=== PATIENT | male | born 1945 | race Caucasian/White ===

== ENCOUNTER 2019-10-29 11:48 | Emergency (ER) | payer MEDICARE ==
[~2019-10-29] VITALS: Ht 177.8 cm; Wt 73.4 kg
[2019-10-29] MEDS ORDERED: TETANUS & DIPHTHERIA TOX,ADULT 0.5 ML (TENIVAC) IM ONE (12:15)
--- NOTE | 2019-10-29 12:23 | NUR ---
To CT per cart.
[2019-10-29 12:25] LABS: BASOPHILS # (AUTO) 0.1 10^3/uL (0.0-0.1); BASOPHILS % (AUTO) 0 % (0-10); EOSINOPHILS # (AUTO) 0.1 10^3/uL (0.0-0.3); EOSINOPHILS % (AUTO) 1 % (0-10); HEMATOCRIT 37 % (40-54); HEMOGLOBIN 12.8 G/DL (13.3-17.7); LYMPHOCYTES # (AUTO) 1.1 X 10^3 (1.0-4.0); LYMPHOCYTES % (AUTO) 8 % (12-44); MEAN CORPUSCULAR HEMOGLOBIN 31 PG (25-34); MEAN CORPUSCULAR HGB CONC 35 G/DL (32-36); MEAN CORPUSCULAR VOLUME 91 FL (80-99); MEAN PLATELET VOLUME 9.5 FL (7.4-10.4); MONOCYTES # (AUTO) 1.3 X 10^3 (0.0-1.0); MONOCYTES % (AUTO) 9 % (0-12); NEUTROPHILS # (AUTO) 12.1 X 10^3 (1.8-7.8); NEUTROPHILS % (AUTO) 82 % (42-75); PLATELET COUNT 333 10^3/uL (130-400); RED CELL DISTRIBUTION WIDTH 12.8 % (10.0-14.5); WHITE BLOOD COUNT 14.7 10^3/uL (4.3-11.0)
[2019-10-29 12:37] LABS: LYMPHOCYTES % (MANUAL) 6 %; MONOCYTES % (MANUAL) 8 %; NEUTROPHILS % (MANUAL) 86 %; RBC MORPH NORMAL
[2019-10-29 12:44] LABS: CREATININE SERUM 1.2 MG/DL (0.60-1.30); POTASSIUM 3.5 MMOL/L (3.6-5.0)
--- NOTE | 2019-10-29 12:48 | Diagnostic Imaging Report ---
PROCEDURE: CT head without contrast. TECHNIQUE: Multiple contiguous axial images were obtained through the brain without the use of intravenous contrast. Auto Exposure Controls were utilized during the CT exam to meet ALARA standards for radiation dose reduction. INDICATION: Fall striking the head. COMPARISON: I have no relevant comparison. FINDINGS: There is soft tissue swelling, presumed right posterior parietal scalp hematoma. The underlying calvarium revealed no traumatic deformity. The sinuses are clear. There is no pneumocephalus. There is no intracerebral hemorrhage. There are no abnormal extra-axial fluid collections. The ventricular system is nondilated and nondisplaced. Cerebrocortical volume is unremarkable for age. There is no hydrocephalus. No mass or mass effect. No findings of focal nor generalized edema. No evidence for elevation of the pressures. IMPRESSION: Right-sided scalp swelling. No fracture, deformity, or evidence for intracranial hemorrhage. Dictated by: Dictated on workstation # [id number]
[2019-10-29] MEDS ORDERED: NS IV 1000 ML 1,000 ML IV SCH (13:00)
--- NOTE | 2019-10-29 13:07 | ED General ---
General Chief Complaint: Trauma-Non Activation Stated Complaint: FALL Nursing Triage Note: Head laceration, skin tear, lower back pain. Nursing Sepsis Screen: No Definite Risk Exam Limitations: No Limitations History of Present Illness Date Seen by Provider: Oct 29, 2019 Time Seen by Provider: 12:20 Initial Comments Patient is a 73-year-old male who presents with dizziness from standing and falling while outdoors on the second step of stepladder resulting on laceration to the apical scalp, right forearm abrasion and lower back pain. Patient states he felt lightheaded and had brief loss of consciousness prior to fall and does not recall the fall. Patient denies headache, neck pain and is not on blood thinners. Denies focal neurologic deficits, no palpitations, chest pain or shortness of breath. No history of seizure disorder or arrhythmia. Patient states he frequently has dizzy episodes while bending over or working in the garden. Date of last tetanus is unknown. Severity: Mild Allergies and Home Medications Allergies Coded Allergies: No Known Drug Allergies (Unverified , 10/29/19) Patient Home Medication List Home Medication List Reviewed: Yes Review of Systems Review of Systems Constitutional: see HPI EENTM: see HPI Respiratory: see HPI Cardiovascular: see HPI Gastrointestinal: see HPI Musculoskeletal: see HPI Skin: see HPI Psychiatric/Neurological: See HPI Hematologic/Lymphatic: See HPI Immunological/Allergic: see HPI All Other Systems Reviewed Negative Unless Noted: Yes Past Wdtiiia-Irllui-Icqjdl Hx Past Med/Social Hx: Reviewed Nursing Past Med/Soc Hx Patient Social History Alcohol Use: Denies Use Recreational Drug Use: No Smoking Status: Never a Smoker 2nd Hand Smoke Exposure: No Recent Foreign Travel: No Contact w/Someone Who Travel: No Recent Infectious Disease Expo: No Recent Hopitalizations: No Physical Abuse: No Sexual Abuse: No Mistreated: No Fear: No Seasonal Allergies Seasonal Allergies: No Past Medical History Surgeries: Yes Thyroidectomy Respiratory: No Cardiac: Yes High Cholesterol, Hypertension Neurological: No Genitourinary: No Gastrointestinal: No Musculoskeletal: No Endocrine: No HEENT: No Cancer: No Psychosocial: No Integumentary: No Physical Exam Vital Signs Vital Signs - First Documented 10/29/19 11:51 Temp 35.9 Pulse 70 Resp 20 B/P (MAP) 151/71 (97) Pulse Ox 100 O2 Delivery Room Air Capillary Refill : Less Than 3 Seconds Height, Weight, BMI Height: '" Weight: lbs. oz. kg; 23.00 BMI Method: General Appearance: WD/WN Eyes: Bilateral Eye Normal Inspection, Bilateral Eye PERRL, Bilateral Eye EOMI HEENT: PERRL/EOMI, Normal ENT Inspection, Pharynx Normal, Moist Mucous Membranes, Other (apical scalp laceration, no foreign body. bleeding is controlled. 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 Norm as Tested Progress/Results/Core Measures Suspected Sepsis Recent Fever Within 48 Hours: No Infection Criteria Present: None New/Unexplained Altered Menta: No Sepsis Screen: No Definite Risk SIRS Temperature: Pulse: 70 Respiratory Rate: 20 Laboratory Tests 10/29/19 12:15: White Blood Count 14.7H Blood Pressure 151 /71 Mean: 97 Laboratory Tests 10/29/19 12:15: Creatinine 1.20, Platelet Count 333 Results/Orders Lab Results Laboratory Tests Test 10/29/19 12:15 Range/Units White Blood Count 14.7 H 4.3-11.0 10^3/uL Red Blood Count 4.07 L 4.35-5.85 10^6/uL Hemoglobin 12.8 L 13.3-17.7 G/DL Hematocrit 37 L 40-54 % Mean Corpuscular Volume 91 80-99 FL Mean Corpuscular Hemoglobin 31 25-34 PG Mean Corpuscular Hemoglobin Concent 35 32-36 G/DL Red Cell Distribution Width 12.8 10.0-14.5 % Platelet Count 333 130-400 10^3/uL Mean Platelet Volume 9.5 7.4-10.4 FL Neutrophils (%) (Auto) 82 H 42-75 % Lymphocytes (%) (Auto) 8 L 12-44 % Monocytes (%) (Auto) 9 0-12 % Eosinophils (%) (Auto) 1 0-10 % Basophils (%) (Auto) 0 0-10 % Neutrophils # (Auto) 12.1 H 1.8-7.8 X 10^3 Lymphocytes # (Auto) 1.1 1.0-4.0 X 10^3 Monocytes # (Auto) 1.3 H 0.0-1.0 X 10^3 Eosinophils # (Auto) 0.1 0.0-0.3 10^3/uL Basophils # (Auto) 0.1 0.0-0.1 10^3/uL Neutrophils % (Manual) 86 % Lymphocytes % (Manual) 6 % Monocytes % (Manual) 8 % Blood Morphology Comment NORMAL Sodium Level 140 135-145 MMOL/L Potassium Level 3.5 L 3.6-5.0 MMOL/L Chloride Level 99 98-107 MMOL/L Carbon Dioxide Level 28 21-32 MMOL/L Anion Gap 13 5-14 MMOL/L Blood Urea Nitrogen 27 H 7-18 MG/DL Creatinine 1.20 0.60-1.30 MG/DL Estimat Glomerular Filtration Rate 59 BUN/Creatinine Ratio 23 Glucose Level 125 H 70-105 MG/DL Calcium Level 9.0 8.5-10.1 MG/DL My Orders Orders - BEATRIZ GRAYSON DO Cbc With Automated Diff (10/29/19 12:10) Basic Metabolic Panel (10/29/19 12:10) Ekg Tracing (10/29/19 12:10) Lumbar Spine 2 Or 3 View (10/29/19 12:10) Sacrum & Coccyx (10/29/19 12:10) Tetanus/Diphtheria Inj (Adult) (Tenivac (10/29/19 12:15) Ct Head Wo (10/29/19 12:10) Manual Differential (10/29/19 12:15) Ns Iv 1000 Ml (Sodium Chloride 0.9%) (10/29/19 13:00) Ct Lumbar Spine Wo (10/29/19 13:27) Ct Pelvis Wo (10/29/19 13:27) Medications Given in ED Current Medications Medications Dose Ordered Sig/David Route Start Time Stop Time Status Last Admin Dose Admin Tetanus/ Diphtheria Toxoids 0.5 ml ONCE ONCE IM 10/29/19 12:15 10/29/19 12:16 DC 10/29/19 13:18 0.5 ML Vital Signs/I&O 10/29/19 11:51 Temp 35.9 Pulse 70 Resp 20 B/P (MAP) 151/71 (97) Pulse Ox 100 O2 Delivery Room Air Capillary Refill : Less Than 3 Seconds Blood Pressure Mean: 97 Departure Communication (Admissions) CT head/CT lumbar spines/CT pelvis: Reviewed. Nondisplaced stable L3 compression fracture with 10% vertebral height loss per radiology report patient has no neurologic injuries. Suspect orthostatic hypotension secondary to environmental conditions position change. Patient stable on the monitor without arrhythmia. Case reviewed with Dr.Bartosz Tank Leyva MD on-call for neurosurgery at [facility] who will see patient in outpatient follow-up in 4 weeks. Impression Primary Impression: Syncope Additional Impressions: Scalp laceration Compression fracture of L3 vertebra Disposition: HOME, SELF-CARE Condition: Stable Departure-Patient Inst. Patient Instructions: Syncope (Fainting) (DC), Vertebral Compression Fracture (DC), Wound Care Add. Discharge Instructions: Please go home and rest. Avoid lifting, bending and strenuous physical activity. Take newly prescribed medications as directed and follow-up with [facility] neurosurgeon in 4 weeks and PCP to coordinate outpatient tests and for further pain management. You may benefit from a TLSO brace as needed for additional pain relief. Contact Dr. Yvette Leyva MD, neurosurgeon at [facility] to schedule follow up appointment. Your PCP should order x-rays of your lumbar spine just prior to your follow up appointment. Simi to removed in 10 days. Return to the ED if signs of infection or wors ening symptoms. [facility] [address] [place] [address], [address] [place] [address] All discharge instructions reviewed with patient and/or family. Voiced understanding. Scripts Cyclobenzaprine HCl (Cyclobenzaprine HCl) 10 Mg Tablet 10 MG PO Q8H, #30 TAB Prov: BEATRIZ GRAYSON DO 10/29/19 Hydrocodone/Acetaminophen ([place] 7.5-325 Tablet) 1 Each Tablet 1 TAB PO Q4H for PAIN-MODERATE MDD 6 TABS for 7 Days, #15 TAB Prov: BEATRIZ GRAYSON DO 10/29/19 BEATRIZ GRAYSON DO Oct 29, 2019 13:07
--- NOTE | 2019-10-29 13:32 | Diagnostic Imaging Report ---
CLINICAL INDICATION: Patient states he fell and hit head and bottom. EXAMS: 1: X-ray of the lumbar spine, 3 views. 2: X-ray of the sacrum and coccyx, 4 views. COMPARISON: None. FINDINGS: Lumbar spine shows a roughly 30% anterior wedge compression deformity of the L3 vertebra. There appears to be some cortical regularity involving the anterior aspect of the L3 vertebra and acute or subacute fracture can't be excluded. Otherwise, the remainder of the lumbar spine shows no acute fracture or dislocation. There are hypertrophic spurs seen throughout the visualized thoracic and lumbar spine. There is multilevel loss of disc space height severe at the L5-S1 level and zpjh-[id number]-bqzjgqbd at the L4-L5 level. There is mild loss of disc space height at the L1-L2 level. There is bony fusion of the bilateral sacroiliac joints. Patient body habitus limits evaluation of fine detail of sacrum and coccyx regions. Visualized portions of the sacrum and coccyx shows no gross fracture. Bowel gas also obscures portions of the sacrum and coccyx. There are phleboliths seen in the pelvis. IMPRESSION: 1: There is anterior wedge compression deformity of the L3 vertebra with concern for possible cortical disruption seen anteriorly. An acute or subacute fracture may be considered. CT scan of the lumbar spine is suggested for further evaluation. 2: Limited visualization of the sacrum and coccyx shows no acute fracture. If there is continued concern for fracture, then CT scan of the sacrum and coccyx would better evaluate. 3: There is multilevel lumbar spine degenerative disease. Results of this report discussed with Dr. Ronak Richards via the telephone on 10/29/2019 at 1325 hours. Dictated by: Dictated on workstation # [id number]
--- NOTE | 2019-10-29 14:25 | Diagnostic Imaging Report ---
PROCEDURE: CT lumbar spine without contrast. TECHNIQUE: Multiple contiguous axial images were obtained through the lumbar spine without the use of intravenous contrast. Sagittal and coronal reformations were then performed. Auto Exposure Controls were utilized during the CT exam to meet ALARA standards for radiation dose reduction. INDICATION: Fall. Back pain. COMPARISON: Lumbar spine radiograph from earlier today. FINDINGS: There are five lumbar-type vertebral bodies. Normal alignment. Superior endplate compression fracture with acute-appearing fracture lines involving L3 with approximately 10% height loss. There is no retropulsion or involvement of the posterior elements. No other fractures. Sinj-ha-jpwtciik degenerative endplate changes and facet arthropathy are greatest at L5-S1 where there is cize-iw-wvcbgipd bilateral neural foraminal narrowing. Visualized pelvis is intact. Mild atherosclerotic calcifications. Moderate colonic diverticulosis. IMPRESSION: Acute-appearing superior endplate compression fracture of L3 resulting in approximately 10% height loss. No retropulsion or involvement of the posterior elements. Dictated by: Dictated on workstation # [id number]
--- NOTE | 2019-10-29 14:26 | Diagnostic Imaging Report ---
PROCEDURE: CT pelvis without contrast. TECHNIQUE: Multiple contiguous axial images were obtained through the pelvis without the use of intravenous contrast. Sagittal and coronal reformations were performed. Auto Exposure Controls were utilized during the CT exam to meet ALARA standards for radiation dose reduction. INDICATION: Trauma, fall with low back pain. COMPARISON: CT lumbar spine performed concurrently. FINDINGS: There is no acute fracture within the proximal femurs or osseous pelvis. Specifically, the sacrum and coccyx are intact. There is ankylosis across the SI joints which may be degenerative in nature. No ankylosis within the lumbar spine is present to suggest spondyloarthropathy. Very mild degenerative changes in the hips. IMPRESSION: 1. No acute fracture in the pelvis or proximal femurs. Specifically, there is no sacral or coccygeal fracture. Dictated by: Dictated on workstation # [id number]
--- OUTSIDE RECORDS SUMMARY | 2019-10-29 14:59 | XMS REPORT | Continuity of Care Document ---
Author Organization Unknown Address Unknown Phone Unavailable Allergies There is no data. Medications There is no data. Problems There is no data. Procedures There is no data. Results Test Result Range LIPID PANEL - 11/25/18 09:26 CHOLESTEROL, TOTAL 239 mg/dL <200 HDL CHOLESTEROL 52 mg/dL >40 TRIGLYCERIDES 84 mg/dL <150 LDL-CHOLESTEROL 168 mg/dL (calc) NRG CHOL/HDLC RATIO 4.6 (calc) <5.0 NON HDL CHOLESTEROL 187 mg/dL (calc) <13 0 CMP - 11/25/18 09:26 GLUCOSE 94 mg/dL 65-99 UREA NITROGEN (BUN) 20 mg/dL 7-25 CREATININE 1.10 mg/dL 0.70-1.18 eGFR NON-AFR. MONEGASQUE 66 mL/min/1.73m2 > OR = 60 eGFR 77 mL/min/1.73m2 > OR = 60 BUN/CREATININE RATIO NOT APPLICABLE (calc) 6-22 SODIUM 144 mmol/L 135-146 POTASSIUM 4.3 mmol/L 3.5-5.3 CHLORIDE 106 mmol/L 98-110 CARBON DIOXIDE 30 mmol/L 20-32 CALCIUM 9.1 mg/dL 8.6-10.3 PROTEIN, TOTAL 6.1 g/dL 6.1-8.1 ALBUMIN 3.8 g/dL 3.6-5.1 GLOBULIN 2.3 g/dL (calc) 1.9-3.7 ALBUMIN/GLOBULIN RATIO 1.7 (calc) 1.0-2. 5 BILIRUBIN, TOTAL 1.2 mg/dL 0.2-1.2 ALKALINE PHOSPHATASE 62 U/L 40-115 AST 19 U/L 10-35 ALT 10 U/L 9-46 LIPID PANEL - 05/22/19 08:23 CHOLESTEROL, TOTAL 152 mg/dL <200 HDL CHOLESTEROL 56 mg/dL > OR = 40 TRIGLYCERIDES 109 mg/dL <150 LDL-CHOLESTEROL 77 mg/dL (calc) NRG CHOL/HDLC RATIO 2.7 (calc) <5.0 NON HDL CHOLESTEROL 96 mg/dL (calc) <130 [facility] - 05/22/19 08:23 GLUCOSE 93 mg/dL 65-99 UREA NITROGEN (BUN) 17 mg/dL 7-25 CREATININE 1.01 mg/dL 0.70-1.18 eGFR NON-AFR. MONEGASQUE 73 mL/min/1.73m2 > OR = 60 eGFR 85 mL/min/1.73m2 > OR = 60 BUN/CREATININE RATIO NOT APPLICABLE (calc) 6-22 SODIUM 142 mmol/L 135-146 POTASSIUM 4.5 mmol/L 3.5-5.3 CHLORIDE 104 mmol/L 98-110 CARBON DIOXIDE 33 mmol/L 20-32 CALCIUM 9.6 mg/dL 8.6-10.3 PROTEIN, TOTAL 6.6 g/dL 6.1-8.1 ALBUMIN 4.2 g/dL 3.6-5.1 GLOBULIN 2.4 g/dL (calc) 1.9-3.7 ALBUMIN/GLOBULIN RATIO 1.8 (calc) 1.0-2. 5 BILIRUBIN, TOTAL 1.2 mg/dL 0.2-1.2 ALKALINE PHOSPHATASE 76 U/L 35-144 AST 21 U/L 10-35 ALT 16 U/L 9-46 CMP - 07/21/19 09:04 GLUCOSE 97 mg/dL 65-99 UREA NITROGEN (BUN) 26 mg/dL 7-25 CREATININE 1.11 mg/dL 0.70-1.18 eGFR NON-AFR. MONEGASQUE 65 mL/min/1.73m2 > OR = 60 eGFR 75 mL/min/1.73m2 > OR = 60 BUN/CREATININE RATIO 23 (calc) 6-22 SODIUM 138 mmol/L 135-146 POTASSIUM 4.2 mmol/L 3.5-5.3 CHLORIDE 98 mmol/L 98-110 CARBON DIOXIDE 33 mmol/L 20-32 CALCIUM 9.6 mg/dL 8.6-10.3 PROTEIN, TOTAL 6.2 g/dL 6.1-8.1 ALBUMIN 4.0 g/dL 3.6-5.1 GLOBULIN 2.2 g/dL (calc) 1.9-3.7 ALBUMIN/GLOBULIN RATIO 1.8 (calc) 1.0-2. 5 BILIRUBIN, TOTAL 1.1 mg/dL 0.2-1.2 ALKALINE PHOSPHATASE 69 U/L 35-144 AST 21 U/L 10-35 ALT 15 U/L 9-46 Complete blood count (CBC) with automate d white blood cell (WBC) differential - 10/29/19 12:15 Blood leukocytes automated count (number/volume) 14.7 10*3/uL 4.3-11.0 Blood erythrocytes automated count (number/volume) 4.07 10*6/uL 4.35-5.85 Venous blood hemoglobin measurement (mass/volume) 12.8 g/dL 13.3-17.7 Blood hematocrit (volume fraction) 37 % 40-54 Automated erythrocyte mean corpuscular volume 91 [ foz_us] 80-99 Automated erythrocyte mean corpuscular h emoglobin (mass per erythrocyte) 31 pg 25-34 Automated erythrocyte mean corpuscular h emoglobin concentration measurement (mass/volume) 35 g/dL 32-36 Automated erythrocyte distribution width ratio 12. 8 % 10.0- 14.5 Automated blood platelet count (count/volume) 333 10*3/uL 130-400 Automated blood platelet mean volume measurement 9.5 [foz_us] 7.4-10.4 Automated blood neutrophils/100 leukocytes 82 % 42-75 Automated blood lymphocytes/100 leukocytes 8 % 12-44 Blood monocytes/100 leukocytes 9 % 0-12 Automated blood eosinophils/100 leukocytes 1 % 0-10 Automated blood basophils/100 leukocytes 0 % 0-10 Blood neutrophils automated count (number/volume) 12.1 10*3 1.8-7.8 Blood lymphocytes automated count (number/volume) 1.1 10*3 1.0-4.0 Blood monocytes automated count (number/volume) 1. 3 10*3 0.0-1.0 Automated eosinophil count 0.1 10*3/uL 0 .0-0.3 Automated blood basophil count (count/volume) 0.1 10*3/uL 0.0-0.1 Manual absolute plasma cell count - 10/14 09/02 12:15 Blood monocytes/100 leukocytes 8 % NRG Manual blood segmented neutrophils/100 leukocytes 86 % NRG Manual blood lymphocytes/100 leukocytes 6 % NRG Blood erythrocyte morphology finding identification [facility] Whole blood basic metabolic panel - 10/14 09/02 12:15 Serum or plasma sodium measurement (moles/volume) 140 mmol/L 135-145 Serum or plasma potassium measurement (moles/volume) 3.5 mmol/L 3.6-5.0 Serum or plasma chloride measurement (moles/volume) 99 mmol/L 98-107 Carbon dioxide 28 mmol/L 21-32 Serum or plasma anion gap determination (moles/volume) 13 mmol/L 5-14 Serum or plasma urea nitrogen measurement (mass/volume ) 27 mg/dL 7-18 Serum or plasma creatinine measurement (mass/volume) 1.20 mg/dL 0.60-1.30 Serum or plasma urea nitrogen/creatinine mass ratio 23 NRG Serum or plasma creatinine measurement w ith calculation of estimated glomerular filtration rate 59 NRG Serum or plasma glucose measurement (mass/volume) 125 mg/dL 70-105 Serum or plasma calcium measurement (mass/volume) 9.0 mg/dL 8.5-10.1 Encounters ACCT No. Visit Date/Time Discharge Status Pt. Type Provider Facility Loc./Unit Complaint [id number] 08/01/2019 15:15:00 08/01/2019 23:59: 59 CLS Outpatient [facility] [id number] 07/21/2019 08:00:00 Document Registration [id number] 05/22/2019 08:15:00 Document Registration [id number] 11/25/2018 09:15:00 Document Registration [id number] 10/29/2019 11:51:[address] Emergency BEATRIZ GRAYSON DO [facility] FALL
[2019-10-29] MEDS ORDERED: HYDR-4227 PO (16:06)
[2019-10-29] MEDS ORDERED: CYCL10TA9 PO (16:06)
[2019-10-29 16:35] VITALS: BP 138/78
== END 2019-10-29 16:35 | disposition home or self-care (01) ==
LOC: ER FS 11:51
DX: S32.030A Wedge compression fracture of third lumbar vertebra, initial encounter for closed fracture (principal); S01.01XA Laceration without foreign body of scalp, initial encounter; S50.811A Abrasion of right forearm, initial encounter; R55 Syncope and collapse; I10 Essential (primary) hypertension; Z23 Encounter for immunization; W11.XXXA Fall on and from ladder, initial encounter
CPT/HCPCS: 36415; 70450; 72100; 72131; 72192; 72220; 80048; 85007; 85027; 90714

== ENCOUNTER → 2019-11-20 | Outpatient (CLI) | payer MEDICARE ==
[~2019-11-20] MED LIST: CYCL10TA9 PO; HYDR-4227 PO
--- NOTE | 2019-11-20 09:33 | Diagnostic Imaging Report ---
INDICATION: Back pain AP and lateral views of the lumbar spine show a compression fracture of L3 with some progressive loss of height compared to prior study from 10/28. The central vertebral body height previously measured 2.8 cm, now measures 2.2 cm. There is a slight retrolisthesis at L4-L5. There is disc space narrowing at both L4-L5 and L5-S1. There are some degenerative disc changes at T12-L1 and L1-L2. IMPRESSION: Compression fracture of the superior endplate of the L3 with some loss of height since 10/29/2019. Dictated by: Dictated on workstation # [id number]
== END ==
LOC: RAD FS 08:40
PROVIDERS: ATTEND Family Medicine
DX: S32.030A Wedge compression fracture of third lumbar vertebra, initial encounter for closed fracture (principal); X58.XXXA Exposure to other specified factors, initial encounter
CPT/HCPCS: 72100

== ENCOUNTER → 2019-12-23 | Outpatient (CLI) | payer MEDICARE ==
--- NOTE | 2019-12-23 11:34 | Diagnostic Imaging Report ---
INDICATION: Low back pain, compression fractures COMPARISON: 11/20/2019 FINDINGS: 3 views of the lumbar column demonstrate stable appearing L3 compression fracture with essentially unchanged height loss. There is no malalignment. No new fracture is identified. Mild degenerative disc disease is present. IMPRESSION: Stable appearing L3 compression fracture Dictated by: Dictated on workstation # [id number]
== END ==
LOC: RAD FS 10:31
DX: S32.030A Wedge compression fracture of third lumbar vertebra, initial encounter for closed fracture (principal)
CPT/HCPCS: 72100

== ENCOUNTER → 2020-05-10 | Outpatient (CLI) | payer MEDICARE ==
[2020-05-10 15:34] LABS: TSH (THYROID ANALYZER) 0.15 UIU/ML (0.35-4.94)
[2020-05-10 16:36] LABS: FREE T4 (FREE THYROXINE) 1.39 NG/DL (0.70-1.48)
== END ==
LOC: LAB FS 09:23
PROVIDERS: ATTEND Internal Medicine
DX: C73 Malignant neoplasm of thyroid gland (principal); E55.9 Vitamin D deficiency, unspecified; E89.0 Postprocedural hypothyroidism
CPT/HCPCS: 36415; 82306; 84432; 84439; 84443; 86800

== ENCOUNTER → 2020-06-30 | Outpatient (CLI) | payer MEDICARE | LOC: LAB FS 10:40 | PROVIDERS: ATTEND Internal Medicine | DX: E89.0 Postprocedural hypothyroidism (principal) | CPT/HCPCS: 36415; 84443 ==

== ENCOUNTER → 2021-06-13 | Outpatient (CLI) | payer MEDICARE, OTHER ==
[~2021-06-13] MED LIST changes: +CYCL10TA25 PO; -CYCL10TA9 PO
== END ==
LOC: LAB FS 15:22
PROVIDERS: ATTEND Internal Medicine
DX: C73 Malignant neoplasm of thyroid gland (principal)
CPT/HCPCS: 36415; 84432; 84443; 86800